=== PATIENT | male | born 1990 | race Native Hawaiian/Other Pacific Islander ===

== ENCOUNTER 2021-10-29 16:31 | Emergency (ER) | payer OTHER ==
[~2021-10-29] VITALS: Ht 167.6 cm; Wt 61.2 kg
[2021-10-29 19:30] VITALS: BP 130/88; TEMP 98.3
== END 2021-10-29 19:30 | disposition home or self-care (01) ==
LOC: ED 16:31
DX: N45.1 Epididymitis (principal)
CPT/HCPCS: 81000; 99282; J1885

== ENCOUNTER 2022-01-20 01:14 | Emergency (ER) | payer OTHER ==
[~2022-01-20] VITALS: Ht 170.2 cm; Wt 61.2 kg
[2022-01-20 01:25] VITALS: BP 153/89; TEMP 98.7
== END 2022-01-20 05:45 | disposition home or self-care (01) ==
LOC: ED 01:14
DX: N50.812 Left testicular pain (principal); N50.811 Right testicular pain; K59.09 Other constipation
CPT/HCPCS: 80307; 81002; 99283

== ENCOUNTER 2022-01-23 23:45 | Emergency (ER) | payer OTHER ==
[~2022-01-23] VITALS: Ht 170.2 cm; Wt 61.2 kg
[2022-01-24 00:07] VITALS: BP 129/75; TEMP 97.8
== END 2022-01-24 02:00 | disposition home or self-care (01) ==
LOC: ED 23:45
DX: N45.1 Epididymitis (principal); F15.10 Other stimulant abuse, uncomplicated
CPT/HCPCS: 80307; 81002; 99283; J1885

== ENCOUNTER 2022-02-13 07:09 | Emergency (ER) | payer OTHER ==
[~2022-02-13] VITALS: Ht 170.2 cm; Wt 61.2 kg
[2022-02-13 07:18] VITALS: BP 121/84; TEMP 98
[2022-02-13 08:12] LABS: PLATELET COUNT 246 K/uL (142-355)
== END 2022-02-13 10:55 | disposition home or self-care (01) ==
LOC: ED 07:09
PROVIDERS: Emergency Medicine
DX: N50.82 Scrotal pain (principal); N45.1 Epididymitis; N43.2 Other hydrocele
CPT/HCPCS: 80053; 80307; 81002; 85027; 87490; 87590; 96372; 99283; J2270; J2405

== ENCOUNTER 2022-02-15 08:19 | Emergency (ER) | payer OTHER ==
[~2022-02-15] VITALS: Ht 170.2 cm; Wt 61.2 kg
[2022-02-15 08:26] VITALS: BP 128/86; TEMP 98.6
== END 2022-02-15 11:47 | disposition home or self-care (01) ==
LOC: ED 08:19
DX: N45.1 Epididymitis (principal); N50.811 Right testicular pain
CPT/HCPCS: 80307; 81002; 99283